=== PATIENT | female | born 1995 | race Caucasian/White ===

== ENCOUNTER → 2020-08-30 13:29 | Outpatient (CLI) | payer SELFPAY ==
[2020-08-30 13:03] VITALS: BMI 30.7
[2020-08-30 16:21] LABS: HIV - WCH Non-Reactive (Nonreactive)
[2020-09-02 16:09] LABS: Hepatitis Be Ab Negative (Negative)
[2020-09-02 21:43] LABS: Hepatitis B Core Ab Total Negative (Negative)
== END ==
PROVIDERS: PCP Nurse Practitioner Family; Referring Provider Physician Assistant Surgical; Visit Provider Physician Assistant Surgical
DX: Z77.21 Contact with and (suspected) exposure to potentially hazardous body fluids (principal)
CPT/HCPCS: 36415; 86703; 86704; 86707

== ENCOUNTER → 2020-10-17 09:55 | Outpatient (CLI) | payer SELFPAY ==
[2020-08-30 13:03] VITALS: BMI 30.7
[2020-10-17 13:02] LABS: Alanine Aminotransfer ALT/SGPT 19 U/L (13-56)
[2020-10-17 13:13] LABS: HIV - WCH Non-Reactive (Nonreactive)
[2020-10-18 14:09] LABS: HCV Quant. RNA PCR HCV Not Detected IU/mL (.)
== END ==
PROVIDERS: PCP Nurse Practitioner Family; Referring Provider Physician Assistant; Visit Provider Physician Assistant
DX: Z77.21 Contact with and (suspected) exposure to potentially hazardous body fluids (principal)
CPT/HCPCS: 36415; 84460; 86703; 87522